=== PATIENT | male | born 1975 | race Caucasian/White ===

== ENCOUNTER → 2016-03-20 | Outpatient (CLI) | payer OTHER ==
[~2016-03-20] MED LIST: ALBUTEROL0.09 MG/A2 INH; ANAPROX DS550 MG PO; AUGMENTIN 875875 MG PO; CIPRO500 MG PO; HYDROCODONE BIT1 T11 PO; KEFLEX500 MG PO; KLONOPIN1 MG PO; MOTRIN800 MG PO; PERCOCET 325 MG1 TA5 PO; PERCOCET 325 MG1 TA7 PO; PREDNICOT10 MG PO; PREDNICOT20 MG PO; PREDNISONE20 M1 PO; TESSALON PERLE100 M1 PO; TRAMADOL HCL50 MG PO; VIBRAMYCIN100 MG PO; VICODIN 5/500 505 MG PO; ZOFRAN4 MG PO
== END | disposition home or self-care (01) ==
LOC: ORTHO 01:15
DX: M25.561 Pain in right knee (principal); M25.461 Effusion, right knee

== ENCOUNTER → 2016-04-08 | Day surgery (SDC) | payer OTHER ==
[2016-04-03 13:34] LABS: BASO # 0.1 10*3/uL (0.0-0.1); BASO % 0.7 % (0.0-1.0); EOS # 0.1 10*3/uL (0.0-0.4); EOS % 0.8 % (1.0-4.0); HEMATOCRIT 46.6 % (42.0-52.0); HEMOGLOBIN 16.2 g/dl (14.0-18.0); LYMPH # 2.5 10*3/uL (1.3-4.4); MEAN CELL VOLUME 87.4 fl (80.0-94.0); MEAN CORPUSCULAR HGB 30.4 pg (27.0-31.0); MEAN CORPUSCULAR HGB CONC 34.8 g/dl (33.0-37.0); MEAN PLATELET VOLUME 10.5 fl (9.6-12.3); MONO # 0.5 10*3/uL (0.1-1.0); MONO % 5.8 % (3.0-9.0); NEUT # 5.6 10*3/uL (2.3-7.9); NEUT % 64.4 % (47.0-73.0); PLATELET COUNT AUTOMATED 293 10*3/uL (130-400); RED BLOOD COUNT 5.33 10*6/uL (4.50-5.90); RED CELL DISTRI WIDTH 12.6 % (0-14.5); WHITE BLOOD COUNT 8.8 10*3/uL (4.8-10.8)
[2016-04-03 13:51] LABS: BUN 15 mg/dl (7-24); CARBON DIOXIDE 29 mmol/L (21-32); CHLORIDE 105 mmol/L (98-107); EST GLOM FILT AFRICAN AMERICAN > 60 ml/min; GLUCOSE 80 mg/dL (65-99); POTASSIUM 4.2 mmol/L (3.5-5.1); SODIUM 142 mmol/L (136-145)
[2016-04-03 14:46] LABS: BILIRUBIN NEGATIVE (NEGATIVE); BLOOD NEGATIVE (NEGATIVE); CLARITY SL CLOUDY (CLEAR); COLOR YELLOW (YELLOW); GLUCOSE NEGATIVE (NEGATIVE); KETONE NEGATIVE (NEGATIVE); LEUKO ESTERASE NEGATIVE (NEGATIVE); NITRITE NEGATIVE (NEGATIVE); PROTEIN NEGATIVE (NEGATIVE); SPECIFIC GRAVITY 1.025 (1.005-1.030); UROBILINOGEN 0.2 E.U./dl (0.2-1.0)
[2016-04-03 14:54] LABS: BACTERIA TRACE; EPITHELIAL CELLS 0-2; MUCOUS 1+; RBC 0-2 rbc/hpf (0-2); WBC 0-2 wbc/hpf (0-5)
[2016-04-08] VITALS (7 sets, daily range): BP systolic 108–135; BP diastolic 68–87
[~2016-04-08] VITALS: Ht 177.8 cm; Wt 99.8 kg
--- NOTE | ~2016-04-08 | O ---
[place], [place] OPERATIVE NOTE NAME: PACO LOPEZ [facility] #: [id number] UNIT #: [id number] ROOM: DOCTOR: LUANN VERDE DO BIRTHDATE: [birth year] DOS: 04/08/2016 PREOPERATIVE DIAGNOSIS: Loose body, right knee. POSTOPERATIVE DIAGNOSIS: Loose body, right knee. OPERATIVE PROCEDURE: Excision of loose body, right knee. SURGEON: Luann Verde DO NURSE PRACTITIONER [employer]ICIANS ASSISTANT: Dieter. ANESTHESIA: [place], CERTIFIED PERSONAL TRAINER; general, LMA intubation. INDICATIONS: The patient is a 40-year-old male with a history of right knee pain for over 10 years. X-rays indicate a loose body at the lateral edge of the patella. The patient failed to respond to conservative treatment. The risks and benefits of the procedure were explained to the patient preoperatively. Preoperative labs and x-rays were obtained. The right knee was marked in the holding area. PROCEDURE: The patient was brought to the operative suite, placed supine on the operative table. Timeout was performed. General anesthetic with LMA intubation was performed. The right lower extremity was prepped and draped in usual orthopedic manner. Tourniquet was applied to the right upper thigh. The extremity was exsanguinated and tourniquet was inflated to 350 mmHg. The marked incision about the proximal patella longitudinally midline was made sharply with a scalpel. Subcutaneous tissue was spread down to the level of the retinaculum. The incision was retracted laterally. The retinaculum was divided. 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 This was removed sharply with a scalpel and was noted to enter the joint. The excision was confirmed by x-ray. The knee was copiously irrigated with normal saline both intra and extra-articularly. The repair was performed utilizing 0 Vicryl at the retinacular and capsular level, followed by 2-0 Vicryl subcutaneously. The closure was completed with skin emmanuel. The area was injected with Marcaine 0.5% with epinephrine. Xeroform, 4 x 4s, ABDs, cast padding and an Primitivo completed the dressing. The tourniquet was released. The anesthetic was reversed. The patient was extubated and taken to recovery room in satisfactory condition. Sponge and needle count correct. ESTIMATED BLOOD LOSS: 5 mL. SPECIMENS: Loose body from the right knee approximately 1 x 1.5 cm bone and cartilage. DRAINS: None. [place], [place] OPERATIVE NOTE NAME: PACO LOPEZ UNIT #: [id number] ROOM: DOCTOR: LUANN VERDE DO BIRTHDATE: [birth year] PACKING: None. COMPLICATIONS: None. 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 LUANN VERDE DO CM:OPRECORD:OPERATIVE NOTE [id number] LUANN VERDE DO 04/09/16 1557 interface
[2016-04-09 07:05] LABS: HIV 1+2 AB + HIV1 P24 AG Non Reactive (Non Reactive)
== END | disposition home or self-care (01) ==
LOC: SDC 03:25
PROVIDERS: Orthopaedic Surgery
DX: M23.41 Loose body in knee, right knee (principal); F41.9 Anxiety disorder, unspecified; F32.9 Major depressive disorder, single episode, unspecified; M19.90 Unspecified osteoarthritis, unspecified site; F17.210 Nicotine dependence, cigarettes, uncomplicated; Z82.49 Family history of ischemic heart disease and other diseases of the circulatory system

== ENCOUNTER 2018-11-26 09:33 | Emergency (ER) | payer SELFPAY ==
[~2018-11-26] VITALS: Ht 177.8 cm; Wt 83.9 kg
[2018-11-26] MEDS ORDERED: KEFLEX500 M1 PO (09:58)
== END 2018-11-26 10:41 | disposition home or self-care (01) ==
LOC: ED 09:33
DX: L03.011 Cellulitis of right finger (principal)